=== PATIENT | male | born 1990 | race Caucasian/White ===

== ENCOUNTER 2023-10-03 09:19 | Emergency (ER) | payer OTHER ==
[2023-10-03] MEDS: Diphtheria,Pertussis(Acell),Tetanus Vaccine 0.5 ML Syringe IM ONE (09:50)
[2023-10-03] MEDS: Lidocaine 1% 5 ML VIAL INJECT ONE (10:25)
== END 2023-10-03 11:41 | disposition home or self-care (01) ==
LOC: MW.ED 09:19
DX: S42.445A Nondisplaced fracture (avulsion) of medial epicondyle of left humerus, initial encounter for closed fracture (principal); S41.012A Laceration without foreign body of left shoulder, initial encounter; S21.112A Laceration without foreign body of left front wall of thorax without penetration into thoracic cavity, initial encounter; I10 Essential (primary) hypertension; Z91.030 Bee allergy status; Z79.899 Other long term (current) drug therapy; Z23 Encounter for immunization; W22.8XXA Striking against or struck by other objects, initial encounter; Y93.89 Activity, other specified
CPT/HCPCS: 12001; 71250; 71250-26; 73030-26-LT; 73030-LT; 73080-26-LT; 73080-LT; 90471; 90715; 99283; 99284-25; J3490